=== PATIENT | female | born 1990 | race African-American/Black ===

== ENCOUNTER 2018-05-21 00:48 | Emergency (ER) | payer OTHER, SELFPAY | END 2018-05-21 01:15 | disposition home or self-care (01) | LOC: MADERS 00:48 | DX: N89.8 Other specified noninflammatory disorders of vagina (principal); J45.909 Unspecified asthma, uncomplicated; Z79.51 Long term (current) use of inhaled steroids | CPT/HCPCS: 99283 ==

== ENCOUNTER 2018-06-13 21:14 | Emergency (ER) | payer OTHER, SELFPAY ==
[2018-06-13 22:11] LABS: #Basophils 0.1 thou/uL (0.0-0.2); #Eosinphils 0.1 thou/uL (0.0-0.7); #Lymphocytes 2.4 thou/uL (1.20-3.40); #Monocytes 0.9 thou/uL (0.11-0.59); #Neutrophils 3.8 thou/uL (1.40-6.50); %Basophils 1.5 % (0.0-1.0); %Eosinophils 1.5 % (0.0-10.0); %Lymphocytes 32.8 % (21.0-51.0); %Monocytes 12.8 % (0.0-10.0); %Neutrophils 51.5 % (42.0-75.0); Anion Gap 14 mmol/L (10-20); Anisocytosis SLIGHT = 6-15 cells (100X) (0-5/hpf); BUN (Urea Nitrogen) 17 mg/dL (7.0-18.7); Calc. Creatinine Clearance 0 mL/min (70-130); Calcium 9.4 mg/dL (7.8-10.44); Carbon Dioxide 23 mmol/L (22-29); Chloride 107 mmol/L (98-107); Estimated GFR-MDRD 90; Glucose 86 mg/dL (70-105); Hemoglobin 7.8 g/dL (12.0-16.0); Hypochromia MODERATE=16-30 cells (100X) (0-5/hpf); MDiff Complete? YES; Macrocytosis SLIGHT = 6-15 cells (100X) (0-5/hpf); Mean Corpuscular HGB CONC 29.5 g/dL (32.0-36.0); Mean Corpuscular Hemoglobin 19.2 pg (27.0-31.0); Mean Corpuscular Volume 65.1 fL (78.0-98.0); Mean Platelet Volume 7.3 fL (7.4-10.4); Microcytosis SLIGHT = 6-15 cells (100X) (0-5/hpf); Platelet Count 345 thou/uL (130-400); Platelet Morphology Comment Appears Adequate; Poikilocytosis SLIGHT = 6-15 cells (100X) (0-5/hpf); Potassium 4.1 mmol/L (3.5-5.1); RBC Distribution Width 16.2 % (11.5-14.5); RBC Morphology Abnormal; Red Blood Cell (RBC) Count 4.06 mill/uL (4.20-5.40); Schistocytes SLIGHT = 2-5 cells (100X) (0-1/hpf); Sodium 140 mmol/L (136-145); White Blood Cell (WBC) Count 7.3 thou/uL (4.8-10.8)
[2018-06-13 22:12] LABS: BHCG - Serum Negative (NEGATIVE); Pregs Control Background? CLEAR/WHITE (CLR/WHITE); Pregs Control Bar Appear? YES (CONTROL BAR)
== END 2018-06-13 22:40 | disposition home or self-care (01) ==
LOC: MADERS 21:14
DX: R07.89 Other chest pain (principal); N64.4 Mastodynia; J45.909 Unspecified asthma, uncomplicated; Z79.51 Long term (current) use of inhaled steroids
CPT/HCPCS: 36415; 80048; 84484; 84703; 85025; 93005

== ENCOUNTER 2023-10-27 20:44 | Emergency (ER) | payer OTHER ==
[2023-10-27 21:04] LABS: Eosinophils 1 % (0-10); Hematocrit 34.3 % (36.0-47.0); Hemoglobin 10.5 g/dL (12.0-16.0); Lymphocytes 29 % (21-51); MDiff Complete? YES; Mean Corpuscular HGB CONC 30.6 g/dL (32.0-36.0); Mean Corpuscular Hemoglobin 25.7 pg (27.0-31.0); Mean Platelet Volume 10.1 fL (7.4-10.4); Monocytes 8 % (0-10); Neutrophil 62 % (42-75); Platelet Count 211 10x3/uL (130-400); RBC Distribution Width 15.8 % (11.5-14.5); Red Blood Cell (RBC) Count 4.08 mill/uL (4.20-5.40); White Blood Cell (WBC) Count 6.9 10x3/uL (4.8-10.8)
[2023-10-27] MEDS ORDERED: Sodium Chloride 0.9% 1,000 ML ONE (21:11)
[2023-10-27 21:16] LABS: BHCG - Serum Negative (NEGATIVE); Pregs Control Background? CLEAR/WHITE (CLR/WHITE); Pregs Control Bar Appear? YES (CONTROL BAR)
[2023-10-27 21:21] LABS: Troponin I Less than 0.010 ng/mL (< 0.028)
[2023-10-27 21:25] LABS: ALT (SGPT) 9 U/L (8-55); AST (SGOT) 16 U/L (5-34); Albumin 4.2 g/dL (3.5-5.0); Alkaline Phosphatase 44 U/L (40-110); Anion Gap 18 mmol/L (10-20); BUN (Urea Nitrogen) 10 mg/dL (7.0-18.7); Bilirubin, Total 0.2 mg/dL (0.2-1.2); Calc. Creatinine Clearance 0 mL/min (70-130); Calcium 9.7 mg/dL (7.8-10.44); Carbon Dioxide 20 mmol/L (22-29); Chloride 106 mmol/L (98-107); Estimated GFR 79; Globulin 3.3 g/dL (2.4-3.5); Glucose 106 mg/dL (70-105); Magnesium 1.7 mg/dL (1.6-2.6); Potassium 3.7 mmol/L (3.5-5.1); Protein, Total 7.5 g/dL (6.0-8.3); Sodium 140 mmol/L (136-145)
[2023-10-27 21:49] LABS: Influenza A by NAA Not Detected (NotDetected); Influenza B by NAA Not Detected (NotDetected); SARS-CoV-2 NAA Rapid Test Not Detected (NotDetected)
[2023-10-27] MEDS ORDERED: Ipratropium/Albuterol 3 ML NEB ONE (22:19)
[2023-10-27] MEDS ORDERED: Ketorolac Tromethamine 30 MG (1 mL) VIAL ONE (22:19)
== END 2023-10-27 23:13 | disposition home or self-care (01) ==
LOC: MADERS 20:44
DX: R07.9 Chest pain, unspecified (principal)
CPT/HCPCS: 71046; 80053; 83735; 84484; 84703; 85025; 85379; 93005; 96361; 96374; J1885; J7050; J7620

== ENCOUNTER 2024-02-26 17:51 | Emergency (ER) | payer SELFPAY ==
[~2024-02-26 17:51] MED LIST: Iopamidol 370 76% 100 ML VIAL ONE
[2024-02-26 18:14] LABS: Bilirubin Negative (Negative); Blood, Urine Small (Negative); Glucose, Urine (Dipstick) Negative (Negative); Ketone, Urine Negative (Negative); Leukocyte Small (Negative); Nitrite Negative (Negative); Protein, Urine (Dipstick) Negative (Neg-Trace); Urobilinogen 0.2 mg/dL (Less than 2)
[2024-02-26 18:15] LABS: Clarity Hazy (Clear)
[2024-02-26 18:25] LABS: CAUTI Indications for Culture Pelvic or flank pain; RBC/HPF 0-3 HPF (0-3)
[2024-02-26 18:26] LABS: Bacteria/HPF 2+ HPF (None Seen); Urine Culture Reflex No No
[2024-02-26 18:42] LABS: Pregnancy Test - Urine (BHCG) Negative (Negative)
[2024-02-26 18:43] LABS: Pregu Control Background? CLEAR/WHITE (CLR/WHITE); Pregu Control Bar Appear? YES (CONTROL BAR)
[2024-02-26 18:46] LABS: #Basophils 0.1 thou/uL (0.0-0.2); #Eosinophils 0.1 thou/uL (0.0-0.7); #Lymphocytes 1.8 thou/uL (1.20-3.40); #Monocytes 0.7 thou/uL (0.11-0.59); #Neutrophils 4.2 thou/uL (1.40-6.50); %Basophils 1.3 % (0.0-1.0); %Eosinophils 2.2 % (0.0-10.0); %Lymphocytes 26.1 % (21.0-51.0); %Monocytes 9.9 % (0.0-10.0); %Neutrophils 60.5 % (42.0-75.0); Hematocrit 33.9 % (36.0-47.0); Hemoglobin 10.5 g/dL (12.0-16.0); Mean Corpuscular HGB CONC 30.9 g/dL (32.0-36.0); Mean Corpuscular Hemoglobin 26.3 pg (27.0-31.0); Mean Corpuscular Volume 85.2 fl (78.0-98.0); Mean Platelet Volume 10.5 fL (7.4-10.4); Platelet Count 235 10x3/uL (130-400); RBC Distribution Width 16.4 % (11.5-14.5); Red Blood Cell (RBC) Count 3.98 mill/uL (4.20-5.40); White Blood Cell (WBC) Count 6.9 10x3/uL (4.8-10.8)
[2024-02-26] MEDS ORDERED: fentaNYL 50 mcg/mL 1 mL Vial ONE ×2 (18:47→20:59)
[2024-02-26] MEDS ORDERED: Ondansetron PF 4 MG/2 ML Vial ONE (18:47)
[2024-02-26 19:01] LABS: ALT (SGPT) 11 U/L (8-55); AST (SGOT) 15 U/L (5-34); Albumin 3.9 g/dL (3.5-5.0); Alkaline Phosphatase 41 U/L (40-110); Anion Gap 16 mmol/L (10-20); BUN (Urea Nitrogen) 11 mg/dL (7.0-18.7); Bilirubin, Total 0.2 mg/dL (0.2-1.2); Calc. Creatinine Clearance 0 mL/min (70-130); Calcium 9.2 mg/dL (7.8-10.44); Carbon Dioxide 20 mmol/L (22-29); Chloride 107 mmol/L (98-107); Estimated GFR 72; Globulin 3.5 g/dL (2.4-3.5); Glucose 90 mg/dL (70-105); Potassium 3.8 mmol/L (3.5-5.1); Protein, Total 7.4 g/dL (6.0-8.3); Sodium 139 mmol/L (136-145)
[2024-02-26] MEDS ORDERED: Sodium Chloride 0.9% 100 ML ONE (20:09)
[2024-02-26] MEDS ORDERED: cefTRIAXone (ROCEPHIN) 1 GM VIAL ONE (20:09)
[2024-02-26] MEDS ORDERED: Ketorolac Tromethamine 30 MG (1 mL) VIAL ONE (20:59)
== END 2024-02-26 21:15 | disposition home or self-care (01) ==
LOC: MADERS 17:51
DX: N10 Acute pyelonephritis (principal); N83.201 Unspecified ovarian cyst, right side
CPT/HCPCS: 74177; 80053; 81001; 81025; 85025; 87077; 87086; 87186; 96365; 96375; 96376; J0696; J1885; J2405; J3010; Q9967

== ENCOUNTER 2025-03-12 11:30 | Emergency (ER) | payer OTHER ==
[2025-03-12] MEDS ORDERED: Methocarbamol 500 MG TAB ONE (12:16)
[2025-03-12 12:19] LABS: #Basophils 0.1 thou/uL (0.0-0.2); #Eosinophils 0.1 thou/uL (0.0-0.7); #Lymphocytes 1.7 thou/uL (1.20-3.40); #Monocytes 0.6 thou/uL (0.11-0.59); #Neutrophils 3.7 thou/uL (1.40-6.50); %Basophils 0.9 % (0.0-1.0); %Eosinophils 1.4 % (0.0-10.0); %Lymphocytes 27.1 % (21.0-51.0); %Monocytes 10.2 % (0.0-10.0); %Neutrophils 60.5 % (42.0-75.0); Hematocrit 33.0 % (36.0-47.0); Hemoglobin 9.9 g/dL (12.0-16.0); Mean Corpuscular Hemoglobin 23.1 pg (27.0-31.0); Mean Corpuscular Volume 77.1 fl (78.0-98.0); Platelet Count 246 10x3/uL (130-400); Red Blood Cell (RBC) Count 4.28 mill/uL (4.20-5.40); White Blood Cell (WBC) Count 6.1 10x3/uL (4.8-10.8)
[2025-03-12 12:20] LABS: BHCG - Serum Negative (NEGATIVE); Pregs Control Background? CLEAR/WHITE (CLR/WHITE); Pregs Control Bar Appear? YES (CONTROL BAR)
[2025-03-12 12:24] LABS: Anisocytosis SLIGHT = 6-15 cells (100X) (0-5/hpf); Microcytosis SLIGHT = 6-15 cells (100X) (0-5/hpf); Platelet Adequacy Comment Appears Adequate
[2025-03-12 12:25] LABS: Anion Gap 14 mmol/L (10-20); BUN (Urea Nitrogen) 15 mg/dL (7.0-18.7); Calc. Creatinine Clearance 0 mL/min (70-130); Calcium 9.1 mg/dL (7.8-10.44); Carbon Dioxide 20 mmol/L (22-29); Chloride 109 mmol/L (98-107); Glucose 93 mg/dL (70-105); Potassium 3.4 mmol/L (3.5-5.1); Sodium 140 mmol/L (136-145)
== END 2025-03-12 12:35 | disposition home or self-care (01) ==
LOC: MADERS 11:30
DX: S29.012A Strain of muscle and tendon of back wall of thorax, initial encounter (principal); J45.909 Unspecified asthma, uncomplicated; Z79.51 Long term (current) use of inhaled steroids; W11.XXXA Fall on and from ladder, initial encounter
CPT/HCPCS: 36415; 72072; 80048; 84703; 85025; 99283